=== PATIENT | female | born 1965 | race Caucasian/White ===

== ENCOUNTER → 2021-04-07 10:43 | Outpatient (CLI) | payer SELFPAY ==
--- NOTE | 2021-04-07 11:46 | DI.RAD.S_ITS ---
PROCEDURE: XR SACRUM COCCYX MIN 2V INDICATIONS: fall, coccyx pain TECHNIQUE: 3 views of the sacrum and coccyx acquired. COMPARISON: None. FINDINGS: Bones: No fractures or dislocations. No suspicious bony lesions. Soft tissues: Visualized bowel gas pattern is normal. No suspicious soft tissue densities. IMPRESSION: Unremarkable sacral and coccygeal radiographs Dictated by: Dino Noriega M.D. on 04/07/2021 at 11:18 Approved by: Dino Noriega M.D. on 04/07/2021 at 11:19
--- NOTE | 2021-04-07 11:46 | DI.RAD.S_ITS ---
PROCEDURE: XR PELVIS 1-2V INDICATIONS: fall, coccyx pain TECHNIQUE: Single view(s) of the pelvis acquired. COMPARISON: None. FINDINGS: Bones: No fractures or dislocations. No suspicious bony lesions. Soft tissues: Visualized bowel gas pattern is normal. No suspicious soft tissue calcifications. IMPRESSION: Unremarkable pelvis radiograph without fracture or foreign body Dictated by: Dino Noriega M.D. on 04/07/2021 at 11:19 Approved by: Dino Noriega M.D. on 04/07/2021 at 11:20
== END ==
PROVIDERS: Referring Provider Physician Assistant; Visit Provider Physician Assistant
DX: M53.3 Sacrococcygeal disorders, not elsewhere classified (principal); M25.559 Pain in unspecified hip
CPT/HCPCS: 72170; 72220